=== PATIENT | male | born 1990 | race African-American/Black ===

== ENCOUNTER 2016-07-10 23:52 | Emergency (ER) | payer MEDICAID ==
[~2016-07-10] VITALS: Ht 200.7 cm; Wt 160.0 kg
[2016-07-11] MEDS ORDERED: SODIUM CHLORIDE 0.9% 1,000 ML IV ONE (01:43)
[2016-07-11] MEDS ORDERED: DIPHENHYDRAMINE 50MG/ML VIAL IV ONE (01:45)
[2016-07-11] MEDS ORDERED: NON FORMULARY PATIENT HOME MED EA XX SCH (01:45)
[2016-07-11 02:05] LABS: CHLORIDE 107 mEq/L (98-107); INDEX HEMOLYSI 3 (1-3); INDEX ICTERIC 1 (1-4); INDEX LIPEMIC 1 (1-3)
[2016-07-11 02:06] LABS: BASOPHILS % 0.5 % (0.0-2.0); DIFFERENTIAL COMMENT 0; EOSINOPHILS % 0.3 % (0.0-5.0); HEMATOCRIT. 39.3 % (42.0-52.0); HEMOGLOBIN. 12.5 g/dL (14.0-18.0); MEAN CORPUSCULAR HEMOGLOBIN 22.6 pg (28.0-32.0); MEAN CORPUSCULAR HGB CONC 31.9 g/dL (31.0-37.0); MEAN CORPUSCULAR VOLUME 70.8 fL (80.0-94.0); MEAN PLATELET VOLUME 8.7 fl (7.4-10.4); MONOCYTES % 11.5 % (2.0-8.0); NEUTROPHILS % 59.7 % (40.0-76.0); PLATELET 217 x1000/uL (130-400); RED BLOOD CELL COUNT 5.54 mill/uL (4.7-6.1); RED CELL DISTRIBUTION WIDTH 15.1 % (11.6-14.6); WHITE BLOOD COUNT 13.8 x1000/uL (4.5-11.0)
[2016-07-11 02:13] LABS: ALANINE AMINOTRANSFERASE 31 IU/L (13-61); ALBUMIN 3.5 g/dL (3.4-5.0); ANION GAP 9; CALCIUM 8.7 mg/dL (8.5-10.1); CARBON DIOXIDE 29 mEq/L (21-32); UREA NITROGEN BLOOD 11 mg/dL (7-21); eGFR > 60 mL/min (>60)
[2016-07-11] MEDS ORDERED: PROCHLORPERAZINE 10MG/2ML VIAL IV NR (02:19)
[2016-07-11 02:34] VITALS: BP 167/83
== END 2016-07-11 04:09 | disposition home or self-care (01) ==
LOC: ER 07-11 03:09
DX: R51 Headache (principal); R05 Cough; I50.9 Heart failure, unspecified; F12.10 Cannabis abuse, uncomplicated; I10 Essential (primary) hypertension; F17.210 Nicotine dependence, cigarettes, uncomplicated; Z71.6 Tobacco abuse counseling; Z88.6 Allergy status to analgesic agent
CPT/HCPCS: 36415; 71010; 80053; 85025; 93005; 96361; 96374; 96375; 99285; 99406; J0780; J1200; J7030; Z7610

== ENCOUNTER 2016-09-25 00:22 | Emergency (ER) | payer MEDICAID ==
[~2016-09-25] VITALS: Ht 198.1 cm; Wt 154.0 kg
[2016-09-25 04:00] VITALS: BP 141/88
== END 2016-09-25 04:32 | disposition home or self-care (01) ==
LOC: ER 00:24
DX: L03.115 Cellulitis of right lower limb (principal); J45.909 Unspecified asthma, uncomplicated; F17.200 Nicotine dependence, unspecified, uncomplicated; F12.10 Cannabis abuse, uncomplicated; R60.9 Edema, unspecified
CPT/HCPCS: 93971; 99284